=== PATIENT | female | born 1990 | race Caucasian/White ===

== ENCOUNTER → 2025-09-01 08:42 | Outpatient (REF) | payer OTHER, SELFPAY | LOC: PNTC 08:42 | PROVIDERS: ATTENDING PHYSICIAN Obstetrics & Gynecology | DX: O30.049 Twin pregnancy, dichorionic/diamniotic, unspecified trimester (principal); O09.522 Supervision of elderly multigravida, second trimester | CPT/HCPCS: 76805; 76810 ==

== ENCOUNTER → 2025-10-01 13:23 | Outpatient (REF) | payer OTHER, SELFPAY | LOC: PNTC 13:23 | PROVIDERS: ATTENDING PHYSICIAN Obstetrics & Gynecology | DX: O30.042 Twin pregnancy, dichorionic/diamniotic, second trimester (principal); O09.522 Supervision of elderly multigravida, second trimester; Z36.86 Encounter for antenatal screening for cervical length; Z36.3 Encounter for antenatal screening for malformations | CPT/HCPCS: 76811; 76812; 76817 ==

== ENCOUNTER → 2025-11-02 10:24 | Outpatient (REF) | payer OTHER, SELFPAY | LOC: PNTC 10:24 | PROVIDERS: ATTENDING PHYSICIAN Obstetrics & Gynecology | DX: O30.042 Twin pregnancy, dichorionic/diamniotic, second trimester (principal); O09.522 Supervision of elderly multigravida, second trimester | CPT/HCPCS: 76816 ==